=== PATIENT | female | born 1975 ===

== ENCOUNTER 2018-04-21 16:56 | Emergency (ER) | payer MEDICAID ==
[2018-04-21 17:17] VITALS: BP 165/84; PULSE 70; RESP 16; TEMP 98.3; O2SAT 98
[2018-04-21] MEDS ORDERED: Lidocaine 5% Patch TD STA (18:24)
--- NOTE | 2018-04-21 18:24 | C.PDOC ---
History Of Present Illness 43 year old female, whose past medical history includes chronic back pain and herniated discs, presents to the ED for evaluation of back pain. Patient states she was seen at a hospital yesterday and given Toradol and Lidoderm patch, from which she found no relief. Patient has an appointment with pain management next month. She denies fever, chills, abdominal pain, dysuria, hematuria, incontinence, extremity numbness/weakness. Time Seen by Provider: 04/21/18 18:15 Chief Complaint (Nursing): Back Pain History Per: Patient History/Exam Limitations: no limitations Onset/Duration Of Symptoms: Days Current Symptoms Are (Timing): Still Present Quality Of Discomfort: "Pain" Pain Scale Rating Of: 10 Previous Symptoms: Back Pain Associated Symptoms: denies: Incontinence, New Weakness, New Numbness Additional History Per: Patient Past Medical History Reviewed: Historical Data, Nursing Documentation, Vital Signs Vital Signs: Last Vital Signs Temp 98.3 F 04/21/18 17:14 Pulse 70 04/21/18 17:14 Resp 16 04/21/18 17:14 BP 165/84 H 04/21/18 17:14 Pulse Ox 98 04/21/18 17:14 - Medical History PMH: No Chronic Diseases Surgical History: No Surg Hx Family History: States: Unknown Family Hx - Social History Hx Alcohol Use: No Hx Substance Use: No - Immunization History Hx Tetanus Toxoid Vaccination: No Hx Influenza Vaccination: No Hx Pneumococcal Vaccination: No Review Of Systems Constitutional: Negative for: Fever, Chills Gastrointestinal: Negative for: Abdominal Pain Genitourinary: Negative for: Dysuria, Incontinence, Hematuria Musculoskeletal: Positive for: Back Pain Neurological: Negative for: Weakness, Numbness Physical Exam - Physical Exam Appears: Non-toxic, Other (in painful distresss, favoring right side ) Skin: Normal Color, Warm, Dry Head: Atraumatic, Normacephalic Eye(s): bilateral: Normal Inspection Oral Mucosa: Moist Neck: Supple Chest: Symmetrical, No Deformity, No Tenderness Cardiovascular: Rhythm Regular, No Murmur Respiratory: Normal Breath Sounds, No Rales, No Rhonchi, No Wheezing Back: No Vertebral Tenderness, No Paraspinal Tenderness Extremity: Normal ROM, Capillary Refill (less than 2 seconds ) Neurological/Psych: Oriented x3, Normal Speech, Normal Cognition, Normal Sensation Gait: Steady ED Course And Treatment O2 Sat by Pulse Oximetry: 98 (on RA) Pulse Ox Interpretation: Normal Medical Decision Making Medical Decision Making: Progress: Motrin PO and Lidoderm patch given. 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 Prescriptions: Ibuprofen [Motrin Tab] 800 mg PO TID #24 tab Instructions: Chronic Pain Forms: [employer] ([place]gasque), General Discharge Instructions - POA Present On Arrival: None - Clinical Impression Clinical Impression: Chronic back pain - Scribe Statement The provider has reviewed the documentation as recorded by the Scribe (Maryan Randhawa) Provider Attestation: All medical record entries made by the Scribe were at my direction and personally dictated by me. I have reviewed the chart and agree that the record accurately reflects my personal performance of the history, physical exam, medical decision making, and the department course for this patient. I have also personally directed, reviewed, and agree with the discharge instructions and disposition.
[2018-04-21] MEDS ORDERED: Lidocaine 5% Patch TD ONE (18:42)
== END 2018-04-21 19:26 | disposition home or self-care (01) ==
LOC: C.ER 16:56
DX: G89.29 Other chronic pain (principal); M54.9 Dorsalgia, unspecified